=== PATIENT | female | born 1965 ===

== ENCOUNTER 2019-03-19 09:31 | Emergency (ER) | payer MEDICAID ==
[2019-03-19 09:33] VITALS: BMI 22.8
[2019-03-19 09:34] VITALS: BP 105/65; PULSE 65; RESP 18; TEMP 98.5; O2SAT 99
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
--- NOTE | 2019-03-19 11:37 | CT ---
Date of service: 03/19/2019 PROCEDURE: CT MAXILLOFACIAL BONES WITHOUT CONTRAST HISTORY: r/o fx of mandible left side COMPARISON: None available. TECHNIQUE: Contiguous axial CT images of the maxillofacial bones were obtained. Coronal and sagittal reformats were generated. Radiation dose: Total exam DLP = 689.02 mGy-cm. This CT exam was performed using one or more of the following dose reduction techniques: Automated exposure control, adjustment of the mA and/or kV according to patient size, and/or use of iterative reconstruction technique. FINDINGS: NASAL BONES: Unremarkable. ORBITS: Unremarkable. PARANASAL SINUSES/ MASTOIDS: Clear. MAXILLA: Unremarkable. MANDIBLE/ TEMPOROMANDIBULAR JOINTS: No acute fracture or destructive bony lesion identified. No definite subluxation or dislocation of the temporomandibular joints bilaterally. Gross artifacts from dental hardware limits evaluation of oral cavity. SKULL BASE: Unremarkable. TEMPORAL BONES: Middle ears and mastoid grossly unremarkable. OTHER FINDINGS: None. IMPRESSION: No fracture of the facial bones is appreciate including the mandible. No definite destructive bony lesion appreciable. Facial soft tissues appear grossly nonfocal as imaged.
== END 2019-03-19 12:04 | disposition home or self-care (01) ==
LOC: H.ER 09:31
DX: S00.83XA Contusion of other part of head, initial encounter (principal); Y04.0XXA Assault by unarmed brawl or fight, initial encounter; Y92.89 Other specified places as the place of occurrence of the external cause